=== PATIENT | male | born 1970 | race Hispanic/Latino ===

== ENCOUNTER 2024-02-19 01:33 | Emergency (ER) | payer BC ==
[~2024-02-19] VITALS: Ht 182.9 cm; Wt 117.9 kg
[2024-02-19 01:36] VITALS: BP 135/72; PULSE 69; RESP 18
== END 2024-02-19 05:10 | disposition left against medical advice (07) ==
LOC: EDH 01:33
DX: M54.50 Low back pain, unspecified (principal); Z53.21 Procedure and treatment not carried out due to patient leaving prior to being seen by health care provider